=== PATIENT | male | born 1965 | race Caucasian/White ===

== ENCOUNTER 2017-09-01 16:36 | Inpatient (IN) | payer MEDICARE, OTHER ==
[~2017-09-01] VITALS: Ht 175.3 cm; Wt 73.0 kg
[2017-09-01] MEDS ORDERED: normal saline 1000ML IV soln IVB ONE ×3 (18:25→20:45)
[2017-09-01 18:41] LABS: BASOPHILS % (AUTO) 0.3 % (0-1); EOSINOPHILS # (AUTO) 0.1 X10'3 (0-0.9); EOSINOPHILS % (AUTO) 2.2 % (0-6); HEMATOCRIT 39.1 % (42.0-52.0); HEMOGLOBIN 13.7 g/dl (14.0-17.9); LYMPHOCYTES # (AUTO) 0.9 X10'3 (1.1-4.8); LYMPHOCYTES % (AUTO) 13.9 % (21-51); MEAN CORPUSCULAR HEMOGLOBIN 35.8 PG (27.0-31.0); MEAN CORPUSCULAR HGB CONC 35.1 % (33.0-36.5); MEAN CORPUSCULAR VOLUME 101.8 FL (78-98); MEAN PLATELET VOLUME 7.4 FL (7.4-10.4); MONOCYTES # (AUTO) 0.7 X10'3 (0-0.9); MONOCYTES % (AUTO) 11.3 % (2-12); NEUTROPHILS # (AUTO) 4.4 X10'3 (1.8-7.7); NEUTROPHILS % (AUTO) 72.3 % (42-75); PLATELET COUNT 177 X10'3 (140-440); RED BLOOD COUNT 3.84 X10'6 (4.70-6.10); RED CELL DISTRIBUTION WIDTH 14.6 % (11.5-14.5); WHITE BLOOD COUNT 6.2 X10'3 (4.5-11.0)
[2017-09-01 19:14] LABS: ALANINE AMINOTRANSFERASE 35 U/L (12-78); ALBUMIN 3.7 G/DL (3.4-5.0); ALBUMIN/GLOBULIN RATIO 0.9 (1.1-1.5); ALKALINE PHOSPHATASE 135 IU/L (46-116); ANION GAP 16 (8-16); ASPARTATE AMINO TRANSFERASE 109 U/L (10-37); BILIRUBIN,TOTAL 0.4 MG/DL (0.1-1.0); BLOOD UREA NITROGEN 14 MG/DL (7-18); BUN/CREATININE RATIO 15.6 (5.4-32.0); CALCIUM 8.4 MG/DL (8.5-10.1); CHLORIDE 96 MMOL/L (99-107); GLUCOSE 103 MG/DL (70-104); POTASSIUM 3.3 MMOL/L (3.5-5.1); SODIUM 132 MMOL/L (135-145); TOTAL CARBON DIOXIDE 20.3 MMOL/L (24-32); TOTAL PROTEIN 7.9 G/DL (6.4-8.2); eGFR 89 ML/MIN
[2017-09-01 19:16] LABS: CREATINE KINASE 4112 U/L (39-308)
[2017-09-01 19:19] LABS: CARBAMAZEPINE (TEGRETOL) 24.7 UG/ML (4.0-12.0)
[2017-09-01 19:37] LABS: CLARITY,URINE CLEAR (Clear); COLOR,URINE YELLOW (Yellow); GLUCOSE, URINE NEGATIVE (Neg); KETONES,URINE 40 mg/dl (Neg); LEUKOCYTE ESTERASE ,URINE NEGATIVE (Neg); NITRITES, URINE NEGATIVE (Neg); OCCULT BLOOD,URINE NEGATIVE (Neg); PROTEIN,URINE NEGATIVE (Neg)
[2017-09-01 19:41] LABS: UA COLLECTION TYPE URINAL
[2017-09-01] MEDS ORDERED: temazepam 15mg capsule PO PRN (21:00)
[2017-09-01] MEDS ORDERED: bisacodyl 10mg suppository rectal RC PRN (22:15)
[2017-09-01] MEDS ORDERED: diphenhydrAMINE 25mg capsule PO PRN (22:15)
[2017-09-01] MEDS ORDERED: ondansetron/PF 4mg/2ml inj IV PRN (22:15)
[2017-09-01] MEDS: K and/or MAG REPLACEMENT MC SCH (22:15)
[2017-09-01] MEDS ORDERED: metoclopramide 5 mg/ml inj IV PRN (22:15)
[2017-09-01] MEDS ORDERED: potassium Cl 40MEQ/NS 500ml 500 ML IV PRN ×2 (22:15)
[2017-09-01] MEDS ORDERED: morphine 2 MG/ML inj. syringe IV PRN ×2 (22:15)
[2017-09-01] MEDS ORDERED: mag hydrox/Alum hydrox/simeth 30ml oral suspension PO PRN (22:15)
[2017-09-01] MEDS ORDERED: acetaminophen 325mg tablet PO PRN ×2 (22:15)
[2017-09-01] MEDS ORDERED: diphenhydrAMINE 50 mg/ml inj IV PRN (22:15)
[2017-09-01] MEDS ORDERED: potassium Cl 20 mEq SR tablet PO PRN (22:15)
[2017-09-01] MEDS ORDERED: HYDROmorphone 1 mg/ml syringe IV PRN ×2 (22:15)
[2017-09-01] MEDS ORDERED: magnesium hydroxide 30ml (MOM) UD suspension PO PRN (22:15)
[2017-09-01] MEDS ORDERED: HYDROcodone/acetaminophen 5mg/325mg tablet PO PRN (22:15)
[2017-09-01] MEDS ORDERED: acetaminophen 650mg rectal suppository RC PRN (22:15)
[2017-09-01 22:48] LABS: PARTIAL THROMBOPLASTIN TIME 30 SECONDS (22-32)
[2017-09-01 22:58] LABS: MAGNESIUM 1.8 MG/DL (1.5-2.4); PHOSPHORUS 3.4 MG/DL (2.3-4.5)
[2017-09-01 23:17] LABS: HEMOGLOBIN A1C 4.9 % (4.5-6.2)
[2017-09-01] MEDS ORDERED: CARB200T8 (23:22)
[2017-09-01] MEDS ORDERED: LEVE500T (23:22)
[2017-09-01] MEDS ORDERED: ZONI100C6 (23:22)
[2017-09-01 23:50] VITALS: BP 134/83
[2017-09-02] MEDS: normal saline 1000ml 1,000 ML IV SCH ×2 (00:12→09:05)
[2017-09-02] MEDS: heparin, porcine 5000 units/ml vial SQ SCH ×4 (00:12→20:00)
[2017-09-02 00:59] LABS: URINE AMPHETAMINE SCREEN NEGATIVE (Neg); URINE BARBITUATE SCREEN NEGATIVE (Neg); URINE BENZODIAZEPINES SCREEN NEGATIVE (Neg); URINE CANNABINOID SCREEN NEGATIVE (Neg); URINE COCAINE SCREEN NEGATIVE (Neg); URINE METHADONE SCREEN NEGATIVE (Neg); URINE OPIATE SCREEN NEGATIVE (Neg); URINE PHENCYCLIDINE SCREEN NEGATIVE (Neg)
[2017-09-02 01:13] LABS: BASOPHILS % (AUTO) 0.5 % (0-1); EOSINOPHILS # (AUTO) 0.1 X10'3 (0-0.9); EOSINOPHILS % (AUTO) 2.1 % (0-6); HEMATOCRIT 34.9 % (42.0-52.0); HEMOGLOBIN 12.2 g/dl (14.0-17.9); LYMPHOCYTES # (AUTO) 0.9 X10'3 (1.1-4.8); LYMPHOCYTES % (AUTO) 18.2 % (21-51); MEAN CORPUSCULAR HEMOGLOBIN 35.8 PG (27.0-31.0); MEAN CORPUSCULAR VOLUME 102.3 FL (78-98); MEAN PLATELET VOLUME 8.1 FL (7.4-10.4); MONOCYTES # (AUTO) 0.5 X10'3 (0-0.9); NEUTROPHILS # (AUTO) 3.3 X10'3 (1.8-7.7); NEUTROPHILS % (AUTO) 69.2 % (42-75); PLATELET COUNT 166 X10'3 (140-440); RED BLOOD COUNT 3.41 X10'6 (4.70-6.10); RED CELL DISTRIBUTION WIDTH 13.5 % (11.5-14.5); WHITE BLOOD COUNT 4.9 X10'3 (4.5-11.0)
[2017-09-02 01:20] LABS: ALANINE AMINOTRANSFERASE 32 U/L (12-78); ALBUMIN 3.2 G/DL (3.4-5.0); ALBUMIN/GLOBULIN RATIO 0.8 (1.1-1.5); ALKALINE PHOSPHATASE 120 IU/L (46-116); ANION GAP 13 (8-16); ASPARTATE AMINO TRANSFERASE 87 U/L (10-37); BILIRUBIN,TOTAL 0.5 MG/DL (0.1-1.0); BLOOD UREA NITROGEN 9 MG/DL (7-18); BUN/CREATININE RATIO 11.3 (5.4-32.0); CALCIUM 7.8 MG/DL (8.5-10.1); CHLORIDE 103 MMOL/L (99-107); GLUCOSE 122 MG/DL (70-104); POTASSIUM 3.2 MMOL/L (3.5-5.1); SODIUM 136 MMOL/L (135-145); TOTAL CARBON DIOXIDE 19.7 MMOL/L (24-32); eGFR > 90 ML/MIN
[2017-09-02 01:26] LABS: ACETAMINOPHEN < 2.0 UG/ML (10-30)
[2017-09-02 02:00] VITALS: BP 119/69
[2017-09-02] MEDS: potassium Cl 20 mEq SR tablet PO PRN ×2 (02:05→05:47)
[2017-09-02 06:00] VITALS: BP 132/83
[2017-09-02 06:46] LABS: CARBAMAZEPINE (TEGRETOL) 15.8 UG/ML (4.0-12.0); CHOL/HDL RATIO 2.5 (0.00-4.99); CHOLESTEROL 98 MG/DL (0-200); HDL CHOLESTEROL 39 MG/DL (35-60); LDL CHOLESTEROL 53 MG/DL (50-100); TRIGLYCERIDES 85 MG/DL (20-135)
[2017-09-02] MEDS: K and/or MAG REPLACEMENT MC SCH (08:00)
[2017-09-02] MEDS: pantoprazole 40mg Tablet.DR PO SCH (08:58)
[2017-09-02] MEDS: docusate sod 100mg capsule PO SCH ×2 (09:08→20:00)
[2017-09-02 09:53] LABS: BASOPHILS % (AUTO) 0.4 % (0-1); EOSINOPHILS # (AUTO) 0.1 X10'3 (0-0.9); EOSINOPHILS % (AUTO) 3.3 % (0-6); HEMATOCRIT 36.1 % (42.0-52.0); HEMOGLOBIN 12.6 g/dl (14.0-17.9); LYMPHOCYTES # (AUTO) 0.9 X10'3 (1.1-4.8); LYMPHOCYTES % (AUTO) 25.2 % (21-51); MEAN CORPUSCULAR HEMOGLOBIN 35.5 PG (27.0-31.0); MEAN CORPUSCULAR HGB CONC 34.8 % (33.0-36.5); MEAN PLATELET VOLUME 8.4 FL (7.4-10.4); MONOCYTES # (AUTO) 0.4 X10'3 (0-0.9); MONOCYTES % (AUTO) 11.3 % (2-12); NEUTROPHILS # (AUTO) 2.1 X10'3 (1.8-7.7); NEUTROPHILS % (AUTO) 59.8 % (42-75); PLATELET COUNT 179 X10'3 (140-440); RED BLOOD COUNT 3.54 X10'6 (4.70-6.10); RED CELL DISTRIBUTION WIDTH 14.6 % (11.5-14.5); WHITE BLOOD COUNT 3.5 X10'3 (4.5-11.0)
[2017-09-02 10:22] LABS: ALANINE AMINOTRANSFERASE 30 U/L (12-78); ALBUMIN 3.3 G/DL (3.4-5.0); ALBUMIN/GLOBULIN RATIO 0.8 (1.1-1.5); ALKALINE PHOSPHATASE 120 IU/L (46-116); ANION GAP 13 (8-16); ASPARTATE AMINO TRANSFERASE 77 U/L (10-37); BILIRUBIN,TOTAL 0.4 MG/DL (0.1-1.0); BLOOD UREA NITROGEN 9 MG/DL (7-18); BUN/CREATININE RATIO 12.9 (5.4-32.0); CALCIUM 8.5 MG/DL (8.5-10.1); CHLORIDE 108 MMOL/L (99-107); GLUCOSE 85 MG/DL (70-104); POTASSIUM 4.2 MMOL/L (3.5-5.1); SODIUM 142 MMOL/L (135-145); TOTAL CARBON DIOXIDE 21.3 MMOL/L (24-32); TOTAL PROTEIN 7.2 G/DL (6.4-8.2); eGFR > 90 ML/MIN
[2017-09-02 10:23] LABS: CREATINE KINASE 2291 U/L (39-308)
[2017-09-02 10:30] VITALS: BP 129/72
[2017-09-02] MEDS: HYDROcodone/acetaminophen 10/325mg tab PO PRN (16:42)
[2017-09-02] MEDS ORDERED: sodium bicarbonate inj. 44.6 MEQ, Potassium Cl inj 20 MEQ in sodium chloride 0.45% 990.... IV SCH (16:55)
[2017-09-02] MEDS ORDERED: LORazepam 2 mg/ml vial IV PRN (16:55)
[2017-09-02 19:00] VITALS: BP 118/76
[2017-09-02] MEDS: sodium bicarbonate (8.4%) inj. 50 MEQ, Potassium Cl inj 20 MEQ in sodium chloride 0.45%... IV SCH (19:46)
[2017-09-02 22:00] VITALS: BP 123/81
[2017-09-03] MEDS: sodium bicarbonate (8.4%) inj. 50 MEQ, Potassium Cl inj 20 MEQ in sodium chloride 0.45%... IV SCH ×3 (05:07→19:49)
[2017-09-03 06:00] VITALS: BP 156/89
[2017-09-03 07:14] LABS: BASOPHILS % (AUTO) 0.4 % (0-1); EOSINOPHILS # (AUTO) 0.2 X10'3 (0-0.9); HEMATOCRIT 34.1 % (42.0-52.0); HEMOGLOBIN 12.2 g/dl (14.0-17.9); LYMPHOCYTES % (AUTO) 26.4 % (21-51); MEAN CORPUSCULAR HGB CONC 35.9 % (33.0-36.5); MEAN CORPUSCULAR VOLUME 100.1 FL (78-98); MEAN PLATELET VOLUME 8.4 FL (7.4-10.4); MONOCYTES # (AUTO) 0.4 X10'3 (0-0.9); MONOCYTES % (AUTO) 11.8 % (2-12); NEUTROPHILS # (AUTO) 2.1 X10'3 (1.8-7.7); NEUTROPHILS % (AUTO) 56.4 % (42-75); PLATELET COUNT 169 X10'3 (140-440); RED CELL DISTRIBUTION WIDTH 14.6 % (11.5-14.5); WHITE BLOOD COUNT 3.7 X10'3 (4.5-11.0)
[2017-09-03 08:00] LABS: ALANINE AMINOTRANSFERASE 31 U/L (12-78); ALBUMIN 3.1 G/DL (3.4-5.0); ALBUMIN/GLOBULIN RATIO 0.8 (1.1-1.5); ALKALINE PHOSPHATASE 111 IU/L (46-116); ANION GAP 12 (8-16); ASPARTATE AMINO TRANSFERASE 48 U/L (10-37); BILIRUBIN,TOTAL 0.2 MG/DL (0.1-1.0); BLOOD UREA NITROGEN 8 MG/DL (7-18); BUN/CREATININE RATIO 11.4 (5.4-32.0); CALCIUM 8.3 MG/DL (8.5-10.1); CHLORIDE 108 MMOL/L (99-107); GLUCOSE 86 MG/DL (70-104); POTASSIUM 3.6 MMOL/L (3.5-5.1); SODIUM 142 MMOL/L (135-145); TOTAL CARBON DIOXIDE 21.7 MMOL/L (24-32); TOTAL PROTEIN 6.8 G/DL (6.4-8.2); eGFR > 90 ML/MIN
[2017-09-03] MEDS: K and/or MAG REPLACEMENT MC SCH (08:00)
[2017-09-03 08:04] LABS: CREATINE KINASE 1027 U/L (39-308)
[2017-09-03] MEDS: heparin, porcine 5000 units/ml vial SQ SCH ×2 (08:21→19:49)
[2017-09-03] MEDS: docusate sod 100mg capsule PO SCH ×2 (08:21→20:00)
[2017-09-03] MEDS: pantoprazole 40mg Tablet.DR PO SCH (08:21)
[2017-09-03] MEDS: HYDROcodone/acetaminophen 10/325mg tab PO PRN (08:23)
[2017-09-03 10:00] VITALS: BP 119/72
[2017-09-03 19:00] VITALS: BP 126/77
[2017-09-03] MEDS: carBAMazepine 100mg chewable tablet PO SCH (19:49)
[2017-09-03 22:00] VITALS: BP 139/91
[2017-09-04 06:43] LABS: BASOPHILS % (AUTO) 0.3 % (0-1); EOSINOPHILS # (AUTO) 0.2 X10'3 (0-0.9); EOSINOPHILS % (AUTO) 5.2 % (0-6); HEMATOCRIT 34.8 % (42.0-52.0); HEMOGLOBIN 12.5 g/dl (14.0-17.9); LYMPHOCYTES # (AUTO) 1.1 X10'3 (1.1-4.8); MEAN CORPUSCULAR HEMOGLOBIN 35.7 PG (27.0-31.0); MEAN CORPUSCULAR HGB CONC 35.8 % (33.0-36.5); MEAN CORPUSCULAR VOLUME 99.9 FL (78-98); MEAN PLATELET VOLUME 7.6 FL (7.4-10.4); MONOCYTES # (AUTO) 0.5 X10'3 (0-0.9); MONOCYTES % (AUTO) 11.2 % (2-12); NEUTROPHILS # (AUTO) 2.3 X10'3 (1.8-7.7); NEUTROPHILS % (AUTO) 56.3 % (42-75); PLATELET COUNT 188 X10'3 (140-440); RED BLOOD COUNT 3.49 X10'6 (4.70-6.10); RED CELL DISTRIBUTION WIDTH 15.1 % (11.5-14.5); WHITE BLOOD COUNT 4.1 X10'3 (4.5-11.0)
[2017-09-04] MEDS: heparin, porcine 5000 units/ml vial SQ SCH (07:00)
[2017-09-04] MEDS: docusate sod 100mg capsule PO SCH (07:01)
[2017-09-04] MEDS: pantoprazole 40mg Tablet.DR PO SCH (07:01)
[2017-09-04] MEDS: carBAMazepine 100mg chewable tablet PO SCH (07:01)
[2017-09-04 07:22] LABS: ALANINE AMINOTRANSFERASE 29 U/L (12-78); ALBUMIN 3.1 G/DL (3.4-5.0); ALBUMIN/GLOBULIN RATIO 0.8 (1.1-1.5); ALKALINE PHOSPHATASE 119 IU/L (46-116); ANION GAP 8 (8-16); ASPARTATE AMINO TRANSFERASE 35 U/L (10-37); BILIRUBIN,TOTAL 0.2 MG/DL (0.1-1.0); BLOOD UREA NITROGEN 11 MG/DL (7-18); BUN/CREATININE RATIO 13.8 (5.4-32.0); CALCIUM 8.6 MG/DL (8.5-10.1); CARBAMAZEPINE (TEGRETOL) 8.2 UG/ML (4.0-12.0); CHLORIDE 107 MMOL/L (99-107); CREATINE KINASE 508 U/L (39-308); GLUCOSE 91 MG/DL (70-104); POTASSIUM 3.9 MMOL/L (3.5-5.1); SODIUM 140 MMOL/L (135-145); TOTAL CARBON DIOXIDE 24.6 MMOL/L (24-32); eGFR > 90 ML/MIN
[2017-09-04] MEDS: K and/or MAG REPLACEMENT MC SCH (08:00)
[2017-09-04 11:34] VITALS: BP 117/71
[2017-09-04] MEDS: sodium bicarbonate (8.4%) inj. 50 MEQ, Potassium Cl inj 20 MEQ in sodium chloride 0.45%... IV SCH (12:24)
[2017-09-04] MEDS ORDERED: morphine 5 MG/ML injection IV PRN ×2 (16:56)
[2017-09-04] MEDS ORDERED: CARB100T15 PO (17:06)
== END 2017-09-04 17:36 | disposition home or self-care (01) | DRG 917 ==
LOC: ER 16:38 → ED HOLD 22:12 → ORTHO 4S 23:30
PROVIDERS: ADMIT Family Medicine; ATTEND Internal Medicine
DX: T42.1X1A Poisoning by iminostilbenes, accidental (unintentional), initial encounter (principal); G93.40 Encephalopathy, unspecified; M62.82 Rhabdomyolysis; E87.1 Hypo-osmolality and hyponatremia; G40.909 Epilepsy, unspecified, not intractable, without status epilepticus; E86.0 Dehydration; E87.6 Hypokalemia; H53.8 Other visual disturbances; M54.5 Low back pain; Z79.899 Other long term (current) drug therapy; Y92.89 Other specified places as the place of occurrence of the external cause
CPT/HCPCS: 36415; 70450; 80053; 80061; 80156; 80305; 80329; 81003; 82550; 83036; 83690; 83735; 83880; 84100; 84443; 85025; 85610; 85730; 87070; 93005; 96360; 96361; 97116; 97161; 99285; J1644; J3480; J7030

== ENCOUNTER 2025-07-14 06:32 | Emergency (ER) | payer MEDICARE, OTHER ==
[~2025-07-14] VITALS: Ht 165.1 cm; Wt 60.1 kg
[~2025-07-14 06:32] MED LIST: CARB100T15 PO
[2025-07-14 06:35] VITALS: TEMP 97.6
--- NOTE | 2025-07-14 06:43 | Physician Documentation ---
History of Present Illness ~ General Chief Complaint: Abnormal Lab(s) Stated Complaint: LOW POTASSIUM Time Seen by MD: 06:40 Primary Medical Doctor: TIM BOSWELL History of Present Illness Initial Comments 60-year-old male, sent in by his primary care doctor for outpatient lab work showing low potassium He tells me that he had some outpatient blood work done. He was called and told that his potassium level was low and he needed to go to the emergency department. He is not sure exactly what the number was. He also has been having some back pain recently. They reportedly did x-rays that showed possible compression fractures. Plan is for an MRI Otherwise he does report some general malaise and unexplained weight loss recently. No fevers. No vomiting or diarrhea. He has been eating well. He is urinating normally. Medication Reconciliation Allergies: Coded Allergies: No Known Allergies (Unverified , 07/14/25) Scheduled Carbamazepine (Carbamazepine), 500 MG PO BID Potassium Chloride (Klor-Con), 1 PKT PO BID Past Medical History Past Medical History: Seizures Past Surgical History: no surgical history Alcohol Use: Occasionally Drug Use: none Lives with: Family Lives In: Home Occupation: employed Review of Systems All Other Systems at this time: Reviewed and Negative Physical Exam Physical Exam Vital Signs: Temperature: 97.6, Source: Temporal, Heart Rate: 105, Respiratory Rate: 18, BP: 125/88, Pulse Oximetry: 100, Weight: 60.100 Physical Exam General: This is a thin middle-aged man, sister at bedside HEENT: Atraumatic, oropharynx appears dry Heart: Mild tachycardic, appears regular Lungs: normal work of breathing, normal oxygen saturation on room air Abdomen: Soft, nondistended, nontender all quadrants Neuro: Alert and oriented Psychiatric: Calm and cooperative with exam Progress Results/Orders Results/Orders Orders - VENUS CANNON MD Potassium Cl 10meq/100ml Bag (Potassium (07/14/25 09:30) Completed Orders - VENUS CANNON MD Cbc/Diff (07/14/25 06:37) CMP (07/14/25 06:37) MG (07/14/25 06:41) Man Diff (07/14/25 06:54) Potassium Cl Sr Tablet (K-Dur Tablet) (07/14/25 07:23) Potassium Cl Sr Tablet (K-Dur Tablet) (07/14/25 09:28) Medications Received in ER Medications (Trade) Dose Ordered Sig/Norma Route PRN Reason Start Time Stop Time Status Last Admin Dose Admin (K-DUR tablet) 40 meq ONCE STAT PO 07/14/25 07:23 07/14/25 07:25 DC 07/14/25 07:31 40 MEQ Potassium Chloride 100 ml @ 100 mls/hr Q1H IV 07/14/25 09:30 07/14/25 11:29 07/14/25 09:39 100 MLS/HR (K-DUR tablet) 40 meq ONCE STAT PO 07/14/25 09:28 07/14/25 09:30 DC 07/14/25 09:39 40 MEQ Vital Signs 07/14/25 07/14/25 07/14/25 06:35 07:00 10:02 Temp 97.6 Pulse 105 76 66 Resp 18 14 13 B/P (MAP) 125/88 144/86 (105) 145/82 (103) Pulse Ox 100 98 100 O2 Flow Rate 0 0 Laboratory Tests Test 07/14/25 06:54 White Blood Count 2.5 L Red Blood Count 3.38 L Hemoglobin 12.9 L Hematocrit 37.0 L Mean Corpuscular Volume 109.6 H Mean Corpuscular Hemoglobin 38.1 H Mean Corpuscular Hemoglobin Concent 34.8 Red Cell Distribution Width 17.0 H Platelet Count 94 L Mean Platelet Volume 8.0 Neutrophils (%) (Auto) 31.1 L Lymphocytes (%) (Auto) 46.6 Monocytes (%) (Auto) 15.7 H Eosinophils (%) (Auto) 6.2 H Basophils (%) (Auto) 0.4 Neutrophils # (Auto) 0.8 L Lymphocytes # (Auto) 1.1 Monocytes # (Auto) 0.4 Eosinophils # (Auto) 0.2 Basophils # (Auto) 0.0 CBC Comment Differential Total Cells Counted 100 Neutrophils % (Manual) 34.0 L Lymphocytes % (Manual) 46.0 Monocytes % (Manual) 14.0 H Eosinophils % (Manual) 6.0 Platelet Estimate Decreased Red Blood Cell Morphology Perf Basophilic Stippling Anisocytosis 1+ Macrocytosis 1+ Sodium Level 144 Potassium Level 2.6 *L Chloride Level 108 H Carbon Dioxide Level 24.9 Anion Gap 11 Blood Urea Nitrogen 12 Creatinine 0.96 Estimated GFR/1.73 m2 80 BUN/Creatinine Ratio 12.5 Glucose Level 73 Calcium Level 8.2 L Magnesium Level 2.1 Total Bilirubin 0.3 Aspartate Amino Transf (AST/SGOT) 13 Alanine Aminotransferase (ALT/SGPT) < 6 L Alkaline Phosphatase 199 H Total Protein 7.3 Albumin 3.2 L Globulin 4.1 Albumin/Globulin Ratio 0.8 L Chemistry Comments Medical Decision Making Additional information obtaine: N/A Findings na Differential Diagnosis Hypokalemia, hypomagnesemia, dehydration, acute kidney injury or renal failure, lab error Assessment The patient presents with reported low potassium and outpatient blood work. Here in the ED he does not have any specific symptoms except for some back pain which he thinks is due to possible compression fracture on recent x-rays. His abdominal exam is benign. Labs do show significant hypokalemia, but no other abnormality. He was given IV and oral potassium. He will be discharged with a short course of oral potassium and dietary changes. He will follow up with his primary care doctor for repeat blood testing. Departure Time of Disposition: 09:55 Disposition: 01 HOME / SELF CARE / HOMELESS Impression: Primary Impression: Abnormal laboratory test result Additional Impression: Hypokalemia Condition: Stable Discharge Instructions: Hypokalemia Referrals: NO PRIMARY CARE PROVIDER (PCP) Prescriptions Potassium Chloride (Klor-Con) 20 Meq Packet 1 PKT PO BID for 3 Days, #6 PKT 0 Refills Prov: VENUS CANNON MD 07/14/25 Education Educated: Patient, Family Educated regarding: diagnosis, treatment, need for follow up Signature Scribe Signature: na Attestation: VENUS Joyce MD Jul 14, 2025 06:43
[2025-07-14 07:04] LABS: MEAN PLATELET VOLUME 8.0 FL (7.4-10.4); RED CELL DISTRIBUTION WIDTH 17.0 % (11.5-14.5)
[2025-07-14 07:19] LABS: CREATININE 0.96 MG/DL (0.60-1.10); TOTAL CARBON DIOXIDE 24.9 MMOL/L (24-32); eCRCL 71 ML/MIN; eGFR 80 ML/MIN
[2025-07-14] MEDS: potassium Cl 20 mEq SR tablet PO STA ×2 (07:31→09:39)
[2025-07-14 07:33] LABS: EOSINOPHILS % (MANUAL) 6.0 % (0-6); LYMPHOCYTES % (MANUAL) 46.0 % (21-51)
[2025-07-14 07:34] LABS: MONOCYTES % (MANUAL) 14.0 % (2-12); NEUTROPHILS % (MANUAL) 34.0 % (42-75); PLATELET ESTIMATE DECREASED
[2025-07-14] MEDS: potassium CL 10mEq/100ml bag 100 ML IV SCH (09:39)
[2025-07-14] MEDS ORDERED: POTA20PA40 PO (09:56)
[2025-07-14 11:25] VITALS: BP 140/90; PULSE 72; RESP 16; O2SAT 98
== END 2025-07-14 11:32 | disposition home or self-care (01) ==
LOC: ER 06:33
DX: R79.9 Abnormal finding of blood chemistry, unspecified (principal); E87.6 Hypokalemia; Z79.899 Other long term (current) drug therapy
CPT/HCPCS: 80053; 83735; 85007; 85025; 96365; 96366; 99284; A4628; J3480